=== PATIENT | male | born 2005 | race Caucasian/White ===

== ENCOUNTER 2023-06-13 23:45 | Emergency (ER) | payer OTHER ==
[~2023-06-13] VITALS: Ht 167.6 cm; Wt 65.0 kg
[2023-06-14 01:00] VITALS: BP 110/58; PULSE 86; RESP 18; TEMP 98.6; O2SAT 100
[2023-06-14] MEDS: DIPHENHYDRAMINE 50MG/ML VIAL IM ONE (01:15)
[2023-06-14] MEDS ORDERED: DIPH28.33 TP (01:41)
== END 2023-06-14 03:08 | disposition home or self-care (01) ==
LOC: ER 23:45
DX: L29.9 Pruritus, unspecified (principal); R05.9 Cough, unspecified
CPT/HCPCS: 99283; 96372; J1200